=== PATIENT | female | born 1975 | race American Indian/Alaskan Native ===

== ENCOUNTER 2020-04-20 08:16 | Day surgery (SDC) | payer MEDICAID ==
[~2020-04-20 08:16] MED LIST: SODIUM CHLORIDE 0.9% 1000 ML 1,000 ML IV SCH
[2020-04-20] MEDS ORDERED: ONDANSETRON 4 MG/2 ML INJ IV PRN (09:05)
--- NOTE | 2020-04-20 09:05 | Anesthesia Day of Surgery ---
Anesthesia Day of Surgery - Day of Surgery Patient Examined: Yes Patient H&P Reviewed: Yes Patient is NPO: Yes
--- NOTE | 2020-04-20 09:05 | Anesthesia Consultation ---
Anesthesia Consult and Med Hx Date of service: 04/20/20 - Airway Anesthetic Teeth Evaluation: Good ROM Head & Neck: Adequate Mental/Hyoid Distance: Adequate Mallampati Class: Class I Intubation Access Assessment: Good - Pulmonary Exam CTA: Yes - Cardiac Exam Cardiac Exam: RRR - Pre-Operative Health Status ASA Pre-Surgery Classification: ASA2 Proposed Anesthetic Plan: MAC - Pulmonary Hx Smoking: No Hx Asthma: Yes (last inhaler 1 yr ago) Hx Respiratory Symptoms: No - Cardiovascular System Hx Hypertension: No - Central Nervous System CVA: No - Endocrine Hx Renal Disease: No Hx Liver Disease: No Hx Non-Insulin Dependent Diabetes: Yes (diet controlled) Hx Thyroid Disease: No - Other Systems Hx Obesity: Yes (BMI 34) - Additional Comments Anesthesia Medical History Comments: Hx PONV with prior GA.
[2020-04-20] MEDS ORDERED: propofoL 200 MG/20 ML VIAL IV ONE ×3 (09:17→09:47)
--- NOTE | 2020-04-20 10:16 | Procedure Note ---
Date of procedure: 04/19/20 Pre-op diagnosis: Abdominal pain/ Changes in bowel Habit/ F/H/o Cancer (Grandmother-Breast ca Post-op diagnosis: other (Mild to Moderate Erosive Esophagitis/ R/o Eosinophilic Esophagitis/ Gastritis/ R/O Celiac Disease/ R/o Microscopic Colitis/ R/O Ileitis/ minor,External Hemorrhoid) Procedure: EGD with Biopsy and Colonoscopy with Biopsy [place] [facility] [place] OMID OTERO Estimated blood loss: minimal Pathology: list Specimen disposition: to lab Condition: stable Disposition: same day (Treat with PPI and prn Bentyl and OTC Probiotic. Avoid aspirin and NSAID for 4 days, otherwise resume home medication and follow up in 1 to 2 weeks ([phone]).)
[2020-04-20 11:33] VITALS: BP 142/82
--- NOTE | 2020-04-20 11:42 | Post Anesthesia Evaluation ---
- Post Anesthesia Evaluation Patient Participated: Yes Airway Patent: Yes Stable Respiratory Function: Yes Nausea/Vomiting: No Temp > 96.8F: Yes Pain Manageable: Yes Adequeate Hydration: Yes Anesthesia Complications: No
--- NOTE | 2020-04-20 12:03 | Operative Report ---
INDICATIONS: This is a 44-year-old female who has been having abdominal pain and discomfort, also noticed some changes in bowel habits. She has a family history of cancer. The patient's grandmother had breast cancer. EGD was done to make sure that there was not any significant upper GI pathology present that would account for the patient's problems. DESCRIPTION OF PROCEDURE: The procedure was done after getting informed consent with MAC anesthesia. Instrument was passed through the hypopharynx into the esophagus, which showed mild to moderate distal erosive esophagitis. Biopsy was done from the distal esophagus to assess for the severity of the erosive esophagitis. Additional biopsy was also done from the mid esophagus to assess for any associated eosinophilic esophagitis. Stomach showed gastritis. Biopsy was done from the gastric antrum and the gastric body to rule out for H. pylori and atrophic gastritis. The pylorus was patent. The duodenum in the first and second portion appeared normal. Biopsy was done from the second part to rule out for possible celiac disease. There was minimal bleeding associated with the procedure. No complications associated with the procedure. ASSESSMENT: Abdominal pain, mild to moderate erosive esophagitis, gastritis, rule out eosinophilic esophagitis, rule out celiac disease. PLAN: Treat the patient with PPI and p.r.n. dose of Bentyl, avoid aspirin and aspirin-related products. A colonoscopy is to be done as part of colon polyp screening and changes in bowel habit and family history of cancer. The procedure was done in the GI lab with assistance of the GI lab team, which included RN, Nereyda Weston, medical office technologist and with the assistance of anesthesia. JOB# [id number] SHIVA/DEMARCUS
--- NOTE | 2020-04-20 12:12 | Operative Report ---
PROCEDURE: Colonoscopy with biopsy. INDICATIONS: This is a 44-year-old female who had EGD done because of abdominal pain, which showed presence of utop-sv-xzuiiclo erosive esophagitis and gastritis. Biopsy was also done to rule out for eosinophilic esophagitis and celiac disease. Colonoscopy was done to make sure there was not any significant lower GI pathology. The patient did complain of some changes in bowel habits and has a family history of cancer, namely grandmother having breast cancer. DESCRIPTION OF PROCEDURE: The procedure was done after getting informed consent. Initial rectal exam was unremarkable other than for some mild external hemorrhoid. Instrument was passed through the rectum on to the cecum, which was identified with ileocecal valve and the appendiceal orifice. The terminal ileum was intubated, showed normal mucosa, which was biopsied to rule out for ileitis. Cecum, ascending colon, transverse colon, descending colon, and sigmoid likewise showed normal mucosa. Random biopsies were done to rule out for microscopic colitis. There was no evidence of diverticular disease or polyps. There was minimal bleeding associated with the procedure and the rectum did not show any internal hemorrhoid on the retroverted view. ASSESSMENT: Changes in bowel habit, rule out microscopic colitis, rule out ileitis. No internal hemorrhoid. Minor external hemorrhoid. Family history of cancer, grandmother had breast cancer. PLAN: To treat the patient with PPI because of the EGD findings of esophagitis, gastritis and p.r.n. dose of Bentyl for abdominal pain, probiotics and aokm-voh-zimiqlj hemorrhoidal medications if her external hemorrhoid should give her any problems. The patient will be asked to avoid aspirin and aspirin-related products for the next few days and follow up in the office in 1-2 weeks' time. The procedure was done in the GI lab with assistance of the GI lab team, which included Nereyda HARTLEY; tech, the mathematical engineering technician and with assistance of anesthesia. JOB# [id number] SHIVA/DEMARCUS
== END 2020-04-20 08:17 | disposition home or self-care (01) ==
LOC: GIO 08:16
DX: R10.9 Unspecified abdominal pain (principal); R14.0 Abdominal distension (gaseous); R19.4 Change in bowel habit; K21.00 Gastro-esophageal reflux disease with esophagitis, without bleeding; K64.4 Residual hemorrhoidal skin tags; K63.89 Other specified diseases of intestine; K31.89 Other diseases of stomach and duodenum; K29.70 Gastritis, unspecified, without bleeding; E11.9 Type 2 diabetes mellitus without complications; J45.909 Unspecified asthma, uncomplicated; E66.9 Obesity, unspecified; Z68.34 Body mass index [BMI] 34.0-34.9, adult; Z80.3 Family history of malignant neoplasm of breast; Z79.899 Other long term (current) drug therapy
CPT/HCPCS: 43239; 45380; 82962; 88305; 88342; J2704; J7030